=== PATIENT | male | born 1980 | race Caucasian/White ===

== ENCOUNTER → 2019-03-21 07:12 | Outpatient (BNVA) | payer OTHER, SELFPAY | PROVIDERS: Family Provider Nurse Practitioner Family; PCP Nurse Practitioner Family; Visit Provider Urology | DX: E29.1 Testicular hypofunction (principal); R79.89 Other specified abnormal findings of blood chemistry; R68.82 Decreased libido | CPT/HCPCS: 81001 ==

== ENCOUNTER 2019-03-22 20:00 | Outpatient (CLI) | payer OTHER, SELFPAY | END 2019-03-22 20:01 | disposition home or self-care (01) | LOC: SLEEP 03-23 10:00 | PROVIDERS: Family Provider Nurse Practitioner Family; PCP Nurse Practitioner Family; Visit Provider Nurse Practitioner Family | DX: G47.10 Hypersomnia, unspecified (principal); G47.33 Obstructive sleep apnea (adult) (pediatric); R09.02 Hypoxemia | CPT/HCPCS: 95810 ==

== ENCOUNTER → 2020-03-06 08:07 | Outpatient (BNVA) | payer OTHER, SELFPAY | PROVIDERS: Family Provider Nurse Practitioner Family; PCP Nurse Practitioner Family; Visit Provider Urology | DX: E29.1 Testicular hypofunction (principal); R68.82 Decreased libido | CPT/HCPCS: 84403 ==

== ENCOUNTER 2020-10-15 08:21 | Outpatient (CLI) | payer OTHER, SELFPAY ==
[2020-10-15 08:50] VITALS: BP 129/84; PULSE 75; RESP 16; TEMP 36.5; O2SAT 97; BMI 39.8
[2020-10-15 09:51] VITALS: BP 123/72; PULSE 66; RESP 16; TEMP 36.6; O2SAT 95
[2020-10-15 10:50] VITALS: BP 127/85; PULSE 66; RESP 16; TEMP 36.6; O2SAT 95
== END 2020-10-15 08:22 | disposition home or self-care (01) ==
LOC: OPS 08:26
PROVIDERS: PCP Nurse Practitioner Family; Visit Provider Nurse Practitioner Family
DX: U07.1 COVID-19 (principal)
CPT/HCPCS: 96365

== ENCOUNTER → 2021-03-05 08:57 | Outpatient (BNVA) | payer OTHER, SELFPAY | PROVIDERS: PCP Nurse Practitioner Family; Visit Provider Urology | DX: R68.82 Decreased libido (principal) | CPT/HCPCS: 84403 ==

== ENCOUNTER → 2021-09-17 10:18 | Outpatient (BNVA) | payer OTHER, SELFPAY | PROVIDERS: PCP Nurse Practitioner Family; Visit Provider Nurse Practitioner Family | DX: R79.89 Other specified abnormal findings of blood chemistry (principal); E29.1 Testicular hypofunction | CPT/HCPCS: 84403 ==

== ENCOUNTER → 2021-10-01 13:10 | Outpatient (BNVA) | payer OTHER, SELFPAY | PROVIDERS: PCP Family Medicine; Visit Provider Family Medicine | DX: E03.9 Hypothyroidism, unspecified (principal); I10 Essential (primary) hypertension; M79.10 Myalgia, unspecified site; E55.9 Vitamin D deficiency, unspecified; E78.5 Hyperlipidemia, unspecified | CPT/HCPCS: 80053; 80061; 82306; 84439; 84443; 84481; 85025 ==

== ENCOUNTER → 2021-11-25 08:57 | Outpatient (BNVA) | payer OTHER, SELFPAY | PROVIDERS: PCP Family Medicine; Visit Provider Urology | DX: R79.89 Other specified abnormal findings of blood chemistry (principal); E03.9 Hypothyroidism, unspecified | CPT/HCPCS: 84402 ==

== ENCOUNTER → 2021-12-03 10:11 | Outpatient (BNVA) | payer OTHER, SELFPAY | PROVIDERS: PCP Family Medicine; Visit Provider Urology | DX: E55.9 Vitamin D deficiency, unspecified (principal); M25.50 Pain in unspecified joint; I10 Essential (primary) hypertension; F32.A Depression, unspecified; F41.9 Anxiety disorder, unspecified; E29.1 Testicular hypofunction | CPT/HCPCS: 80053; 80061; 82306; 82607; 83735; 84403; 84439; 84443; 84550; 85025; 85651; 86038; 86140; 86200; 86431 ==

== ENCOUNTER → 2022-01-20 10:10 | Outpatient (BNVA) | payer OTHER, SELFPAY | PROVIDERS: PCP Family Medicine; Visit Provider Nurse Practitioner Family | DX: E03.9 Hypothyroidism, unspecified (principal); R79.89 Other specified abnormal findings of blood chemistry; E79.0 Hyperuricemia without signs of inflammatory arthritis and tophaceous disease | CPT/HCPCS: 80053; 84443; 84550; 86705; 86706; 86709; 86803; 87340 ==

== ENCOUNTER → 2022-03-01 08:40 | Outpatient (BNVA) | payer OTHER, SELFPAY | PROVIDERS: PCP Family Medicine; Visit Provider Urology | DX: R79.89 Other specified abnormal findings of blood chemistry (principal) | CPT/HCPCS: 84403 ==

== ENCOUNTER → 2022-03-04 16:12 | Outpatient (BNVA) | payer OTHER, SELFPAY | PROVIDERS: PCP Family Medicine; Visit Provider Nurse Practitioner Family | DX: M79.10 Myalgia, unspecified site (principal); R05.9 Cough, unspecified; R53.83 Other fatigue; J06.9 Acute upper respiratory infection, unspecified; R05.3 Chronic cough | CPT/HCPCS: 80053; 86664; 86665 ==

== ENCOUNTER → 2022-03-22 10:29 | Outpatient (BNVA) | payer OTHER, SELFPAY | PROVIDERS: PCP Family Medicine; Visit Provider Specialist | DX: R05.8 Other specified cough (principal) | CPT/HCPCS: 71046 ==

== ENCOUNTER 2022-04-29 08:51 | Outpatient (CLI) | payer OTHER, SELFPAY | END 2022-04-29 08:52 | disposition home or self-care (01) | PROVIDERS: PCP Family Medicine; Visit Provider Specialist | DX: R05.9 Cough, unspecified (principal) | CPT/HCPCS: 94010; 94726; 94729 ==

== ENCOUNTER 2022-04-30 11:18 | Outpatient (CLI) | payer OTHER, SELFPAY ==
--- NOTE | 2022-04-30 11:45 | USCV_ITS ---
Shilo Painter Age: 41 Gender: M : 1980 Exam Date: 04/30/2022 12:08 Ordering Phys: Bertha Louis NP Technologist: Catherine Marc [place] [facility] [place]: Covid symptoms BP: / HR: 85 Rhythm: Sinus Technical Quality: Adequate MEASUREMENTS (Male / Female) Normal Values 2D ECHO LV Diastolic Diameter PLAX 4.7 cm 4.2 - 5.9 / 3.9 - 5.3 cm LV Systolic Diameter PLAX 3.5 cm LV Chamber Size 2.8 cm IVS Diastolic Thickness 1.3 cm 0.6 - 1.0 / 0.6 - 0.9 cm IVS Systolic Thickness 1.4 cm LVPW Diastolic Thickness 1.4 cm 0.6 - 1.0 / 0.6 - 0.9 cm LVPW Systolic Thickness 1.4 cm RV Chamber Size 3.1 cm LVOT Diameter 2.1 cm LV Ejection Fraction 2D Teich 48.9 % LV Ejection Fraction MOD 2C 71.5 % LV Ejection Fraction 2C AL 72.5 % LA Diameter 3.2 cm LA Width 2.9 cm LA Height 4.1 cm RA Width 3.9 cm RA Height 3.5 cm Aorta at Sinotubular Diameter 3.1 cm IVC Diameter 2.2 cm M-MODE Aortic Annulus Diameter 3.3 cm LA Ao Ratio MM 1.1 MV E Point Septal Separation 0.3 cm DOPPLER AV Peak Velocity 116.0 cm/s LVOT Peak Velocity 112.0 cm/s AV Area Cont Eq vti 3.2 cm squared AV Area Cont Eq pk 3.2 cm squared MV Area PHT 3.9 cm squared Mitral E to A Ratio 1.2 MV E' Velocity 35.5 cm/s Mitral E to MV E' Ratio 12.6 Mitral E to LV E' Lateral Ratio 11.7 Mitral E to LV E' Septal Ratio 13.6 TR Peak Velocity 165.9 cm/s TR Peak Gradient 11.0 mmHg TR Mean Velocity 135.5 cm/s TR Mean Gradient 7.8 mmHg TR Velocity Time Integral 37.3 cm TV Peak E Velocity 75.0 cm/s Right Atrial Pressure 3.0 mmHg Pulmonary Artery Systolic Pressu 14.0 mmHg RV Acceleration Time 0.1 s RV Ejection Time 0.3 s RV AcT/ET 0.5 FINDINGS Left Ventricle Normal left ventricular size and systolic function, EF 60 %. No regional wall motion abnormalities. Right Ventricle The right ventricle is normal in size and function. Right Atrium The right atrium is normal in size. Left Atrium The left atrium is normal in size. Mitral Valve No gross abnormalities noted Aortic Valve No gross abnormalities noted Tricuspid Valve No gross abnormalities noted Pulmonic Valve Pulmonic valve not well visualized. Pericardium Normal pericardium without effusion. Aorta Normal ascending aorta dimension. IVC The inferior vena cava appears normal. CONCLUSIONS Normal left ventricular size and systolic function, EF 60 %. No regional wall motion abnormalities. Possibly normal chamber No significant valvular abnormalities were noted. There is no pericardial effusion. There are no intracardiac masses. No similar previous studies are available for comparison Dr Wei Donaldson MD FACC (Electronically Signed) Final Date: 04 May 2022 00:54 S
== END 2022-04-30 11:19 | disposition home or self-care (01) ==
PROVIDERS: PCP Family Medicine; Visit Provider Nurse Practitioner Family
DX: I51.7 Cardiomegaly (principal)
CPT/HCPCS: 93306

== ENCOUNTER 2022-06-24 08:13 | Outpatient (CLI) | payer OTHER, SELFPAY ==
--- NOTE | 2022-06-24 08:32 | ECG_ITS ---
[facility] Test Date: 2022-06-24 Pat Name: Shilo Painter Department: Room: Gender: Male Infusion Rn: : 1980 Requested By: Cooper Rizo Order Number: [id number] Sienna MD: Cooper Rizo M.D. Interpretive Statements NAME OF STUDY: EXERCISE SESTAMIBI STRESS TEST INDICATION: [Chest Pain; Shortness of Breath] EXERCISE DATA: The patient was exercised by Uziel protocol. Baseline heart rate was 74 beats per minute. Baseline blood pressure was 142/106 millimeters of mercury. Target heart rate was 152 beats per minute. Maximum heart rate achieved was 177 which was 116% of the target heart rate. Maximum blood pressure was 211/131 millimeters of mercury. Total exercise time was 7 minutes 21 seconds. Maximum METs achieved was 10.2. The reason for ending the test was completion of protocol. ELECTROCARDIOGRAM: BASELINE: Showed sinus rhythm, normal axis, no significant ST-T changes at the baseline noted. [] EXERCISE: At the peak exercise level, [] No significant ST-T changes suggestive of ischemia noted. [] RECOVERY: During the recovery period, heart rate dropped appropriately. No significant ST-T changes in the recovery suggestive of ischemia noted. [] CONCLUSION: 1. Exercise capacity is good 2. Heart rate response was appropriate 3. Blood pressure response was appropriate 4. Symptoms not suggestive of ischemia. 5. Electrocardiogram portion of the stress test was not suggestive of ischemia. 6. Nuclear scan will be documented separately. Electronically Signed On 07-10-2022 21:41:07 CDT by Cooper Rizo M.D. [id number]
--- NOTE | 2022-06-24 08:34 | NMCV_ITS ---
NM newton perf SPECT r/s* [id number] Shilo Painter Age: 41 Gender: M : 1980 Exam Date: 06/24/2022 08:34 Ordering Phys: Cooper Rizo M.D ([email or web address]) Technologist: MARTHA Agee Exam Location: [facility] Indications: CHEST PAIN, SHORTNESS OF BREATH STRESS TEST Please see separate stress test report in [facility] for full findings IMAGE PROTOCOL Rest/Stress 1 Exercise Day Radiopharmaceutical Dose (mCi) Administration Site Administered by Rest: Tc-99m 11.0 IV MARTHA Casanova Sestamicecy Stress:Tc-99m 33.0 IV MARTHA Casanova Sestamicecy Rest: 24-Jun-2022 60 Discovery 630 Stress: 24-Jun-2022 15 Discovery 630 Radiopharmaceutical was injected at 91 % maximum heart rate. Images obtained in supine and prone position. SPECT RESULTS Technical Quality: Excellent Raw Data Analysis: Normal Image Corrections: No attenuation or motion correction applied Summed Stress Score: 0 Summed Rest Score: 4 Summed Difference Score: 0 PERFUSION FINDINGS There is a reduced radiotracer uptake in the apical inferior and inferior carpenter that improves on stress images. This is consistent with attenuation artifact. No evidence of ischemia FUNCTIONAL RESULTS (calculated via Gated SPECT) Stress Image LV EF (%): 60 Stress EDV (mL):96 TID: 0.73 Stress ESV (mL):38 FUNCTIONAL FINDINGS: There is normal left ventricular systolic function. IMPRESSIONS 1. Attenuation artifact noted in the apical inferior and inferior carpenter. No evidence of ischemia 2. LV systolic function is normal Cooper Rizo MD (Electronically Signed) Final Date: 24 Jun 2022 17:10 S
[2022-06-24 08:35] VITALS: BMI 41.7
[2022-06-24 10:30] VITALS: BP 116/99; PULSE 116
== END 2022-06-24 08:14 | disposition home or self-care (01) ==
PROVIDERS: PCP Nurse Practitioner Family; Visit Provider Internal Medicine
DX: R07.9 Chest pain, unspecified (principal); R06.02 Shortness of breath
CPT/HCPCS: 36415; 78452; 93017; 96374; A9500

== ENCOUNTER → 2022-08-17 11:22 | Outpatient (BNVA) | payer OTHER, SELFPAY | PROVIDERS: PCP Nurse Practitioner Family; Visit Provider Nurse Practitioner Family | DX: J06.9 Acute upper respiratory infection, unspecified (principal); E78.5 Hyperlipidemia, unspecified; F41.9 Anxiety disorder, unspecified; F32.A Depression, unspecified; I10 Essential (primary) hypertension; E79.0 Hyperuricemia without signs of inflammatory arthritis and tophaceous disease; E29.1 Testicular hypofunction; E03.9 Hypothyroidism, unspecified; R53.83 Other fatigue; R79.89 Other specified abnormal findings of blood chemistry | CPT/HCPCS: 80053; 80061; 84402; 84403; 84443; 84550; 86664; 86665 ==

== ENCOUNTER 2022-09-22 09:38 | Outpatient (CLI) | payer OTHER, SELFPAY ==
--- NOTE | 2022-09-22 09:45 | USCV_ITS ---
Shilo Painter Age: 41 Gender: M : 1980 Exam Date: 09/22/2022 09:54 Ordering Phys: Bertha Louis NP Technologist: CASPER [place] [facility] [place]: Forearm swelling HISTORY: Rt Forearm Swelling PROCEDURES: Venous duplex imaging was performed in only the right upper extremity. The following venous structures were evaluated: internal jugular vein, subclavian vein, axillary vein, and brachial veins. In addition, the basilic vein and cephalic vein. In addition, the radial vein and ulnar vein. Serial compression, augmentation maneuvers, and spectral Doppler flow evaluation were performed. FINDINGS: Normal 2-D, color Doppler and phasicity noted in ther right upper extremity venous system extending from the right internal jugular vein through the main forearm. No thrombosis or occlusion noted. CONCLUSIONS No right upper extremity DVT. Dr. Bonnie Mares DO (Electronically Signed) Final Date: 22 September 2022 13:31 S
== END 2022-09-22 09:39 | disposition home or self-care (01) ==
PROVIDERS: PCP Nurse Practitioner Family; Visit Provider Nurse Practitioner Family
DX: M79.601 Pain in right arm (principal); M79.89 Other specified soft tissue disorders
CPT/HCPCS: 93971

== ENCOUNTER → 2023-02-10 10:14 | Outpatient (BNVA) | payer OTHER, SELFPAY | PROVIDERS: PCP Nurse Practitioner Family; Visit Provider Nurse Practitioner Family | DX: M79.672 Pain in left foot (principal); S99.922A Unspecified injury of left foot, initial encounter; X58.XXXA Exposure to other specified factors, initial encounter; E78.5 Hyperlipidemia, unspecified; E03.9 Hypothyroidism, unspecified; E55.9 Vitamin D deficiency, unspecified; I10 Essential (primary) hypertension; Z79.899 Other long term (current) drug therapy | CPT/HCPCS: 73630; 80053; 80061; 82306; 84443 ==

== ENCOUNTER → 2023-02-17 10:56 | Outpatient (BNVA) | payer OTHER, SELFPAY | PROVIDERS: PCP Nurse Practitioner Family; Visit Provider Podiatrist Foot & Ankle Surgery | DX: M67.471 Ganglion, right ankle and foot (principal) | CPT/HCPCS: 73630 ==

== ENCOUNTER → 2023-07-27 11:54 | Outpatient (BNVA) | payer OTHER, SELFPAY | PROVIDERS: PCP Nurse Practitioner Family; Visit Provider Nurse Practitioner Family | DX: I10 Essential (primary) hypertension (principal); F41.9 Anxiety disorder, unspecified; F32.A Depression, unspecified; M79.672 Pain in left foot; R79.89 Other specified abnormal findings of blood chemistry; E78.2 Mixed hyperlipidemia; E03.9 Hypothyroidism, unspecified; M19.90 Unspecified osteoarthritis, unspecified site; Z79.899 Other long term (current) drug therapy | CPT/HCPCS: 80053; 80061; 84402; 84403; 84443; 85025 ==

== ENCOUNTER 2024-03-20 13:55 | Outpatient (CLI) | payer OTHER, SELFPAY ==
--- NOTE | 2024-03-20 14:10 | XR_ITS ---
WS: [id number] Exam: XR lumbar spine f/e only [id number] Date/Time of Exam: 03/20/2024 2:16 PM Reason For Exam: BACK PAIN Comparison 06/18/2013. No flexion or extension instability. Disc spaces are preserved. Posterior elements appear to be intac t. Mild spondylosis of the L4 and L5. XR/XR lumbar spine f/e only [id number] IMPRESSION: 1. No flexion or extension instability.
== END 2024-03-20 13:56 | disposition home or self-care (01) ==
LOC: RAD 13:59
PROVIDERS: PCP Nurse Practitioner Family; Visit Provider Nurse Practitioner Family
DX: M54.16 Radiculopathy, lumbar region (principal); M47.896 Other spondylosis, lumbar region
CPT/HCPCS: 72120

== ENCOUNTER 2024-03-21 12:09 | Outpatient (CLI) | payer OTHER, SELFPAY ==
--- NOTE | 2024-03-21 12:18 | XR_ITS ---
WS: [email or web address] Exam: XR hip LT 2-3V wo/w pel* [id number] Date/Time of Exam: 03/21/2024 12:19 PM Reason For Exam: HIP PAIN, LEFT No fracture noted. The joint spaces preserved. Normal soft tissues. XR/XR hip LT 2-3V wo/w pel* [id number] IMPRESSION: 1. Normal LEFT hip.
== END 2024-03-21 12:10 | disposition home or self-care (01) ==
LOC: RAD 12:11
PROVIDERS: PCP Nurse Practitioner Family; Visit Provider Nurse Practitioner Family
DX: M25.552 Pain in left hip (principal)
CPT/HCPCS: 73502

== ENCOUNTER 2024-03-21 12:44 | Emergency (ER) | payer OTHER, SELFPAY ==
[2024-03-21 12:51] VITALS: BP 149/108; PULSE 122; RESP 16; TEMP 36.6; O2SAT 93; BMI 43.6
--- NOTE | 2024-03-21 13:04 | W.ED.BACK ---
HPI - Back Pain/Injury General: Chief Complaint: Back Pain/Injury Stated Complaint: hip/low back pain Time Seen by Provider: 03/21/24 12:54 Source: patient Mode of arrival: ambulatory Limitations: no limitations History of Present Illness: Patient is a 43-year-old male who presents the emergency department complaining of left lower extremity pain intermittently greater than a month. Patient states initial injury was a fall that he had at work, injuring his left knee. He states that he had an MRI performed and this showed a medial meniscus tear. He notes steady worsening of his left hip as well as radiation into his left back and now is radiating across his right back. States he has been ambulatory, the pain will intermittently get worse but overall presents today due to unbearable pain. He states that he took a couple of [place] pills, overall has not gotten any relief from medication. Denies history of fevers, cancer history, numbness or weakness, bowel or bladder incontinence, or any other concerning symptoms. No history of chronic steroid use or IV drug use. Tachycardic on arrival, secondary to pain most likely rest of his vitals unremarkable. Denies any recent trauma other than the initial injury. Patient notes that he recently had normal lab work done. MD elicited complaint: back pain Pertinent past history: recent trauma (Greater than 1 month ago) Onset (ago): month(s) Timing: intermittent Severity: severe Location: left lower back Radiation: left leg below the knee Exacerbating factors: movement, sitting upright and walking Relieving factors: none Context: fall Associated symptoms: Deny abdominal pain, difficulty walking, fecal incontinence, fever(s) or syncope Related Data Home Medications Medication Instructions Recorded Confirmed cholecalciferol (vitamin D3) 125 250 mcg PO DAILY 10/01/21 03/21/24 mcg (5,000 unit) capsule allopurinol 200 mg tablet 200 mg PO DAILY 03/21/24 03/21/24 aspirin 81 mg tablet,delayed 81 mg PO DAILY 03/21/24 03/21/24 release cyclobenzaprine 10 mg tablet 10 mg PO Q8H PRN Muscle Spasm 03/21/24 03/21/24 levothyroxine 150 mcg tablet 150 mcg PO DAILY 03/21/24 03/21/24 loratadine 10 mg tablet 10 mg PO DAILY 03/21/24 03/21/24 magnesium 250 mg tablet 250 mg PO DAILY 03/21/24 03/21/24 valsartan 80 1 tab PO DAILY 03/21/24 03/21/24 mg-hydrochlorothiazide 12.5 mg tablet zinc sulfate 50 mg zinc (220 mg) 50 mg PO DAILY 03/21/24 03/21/24 tablet Previous Rx's Medication Instructions Recorded syringe with needle 3 mL 22 gauge #10 ea 11/25/20 x 1 (Syringe) testosterone cypionate 200 mg/mL 200 mg IM .weekly #10 mL 03/04/22 intramuscular oil citalopram 20 mg tablet 20 mg PO DAILY #90 tabs 07/27/23 ketorolac 10 mg tablet 10 mg PO Q8H PRN pain #15 tabs 03/21/24 prednisone 20 mg tablet 60 mg (3 x 20 mg) PO ONCE 5 days 03/21/24 #15 tabs Allergies Allergy/AdvReac Type Severity Reaction Status Date / Time No Known Allergies Allergy Verified 02/17/23 10:52 Review of Systems General: Reports: 10 or more systems reviewed and unremarkable except in HPI and below Const: Reports: other (denies trauma); Denies: fever(s), change in weight or night sweats Card: Denies: chest pain, lightheadedness or syncope Resp: Denies: dyspnea GI: Denies: abdominal pain or fecal incontinence : Denies: urinary incontinence Musc: Reports: back pain, extremity pain (Left lower) and limited range of motion; Denies: neck pain Skin/Breast: Denies: rash or skin pain Neuro: Denies: headache(s), numbness in extremities, weakness in extremities, sensory changes, lack of coordination, difficulty walking, frequent falls or involuntary movements PFSH ED PFSH: Medical History Anxiety and depression Myalgia Hypersomnia Depression Hypogonadism in male Essential hypertension Decreased libido Surgical History History of surgery on arm DISTAL BICEP TENDON REPAIR S/P tonsillectomy and adenoidectomy S/P knee surgery Family History Unknown Adopted Social History Smoking and tobacco/nicotine status: never used tobacco/nicotine Alcohol intake: never Substance/Drug Use: never Adopted: Yes Marital status: Current occupational status: employed Physical Exam Const: COMMON NORMALS: patient oriented x3, no limitations, healthy appearing and alert GENERAL APPEARANCE: cooperative OTHER: Appears uncomfortable Resp: COMMON NORMALS: normal respiratory effort, No retractions, No use of accessory muscles and clear to auscultation bilaterally AUSCULTATION: clear to auscultation bilaterally Cardio: COMMON NORMALS: regular rate, regular rhythm, S1 normal heart sound present and S2 normal heart sound present RATE: regular rate RHYTHM: regular rhythm HEART SOUNDS: S1 normal heart sound present and S2 normal heart sound present Back/Pelvis: OTHER: Normal visual examination. No spinous process tenderness. Minimal tenderness to palpation to the left paralumbar muscles. Discomfort with range of motion at the lower back, positive straight leg raise testing on both the left and right. Extremity: COMMON NORMALS: normal to inspection, full ROM and no pedal edema NARRATIVE EXTREMITY EXAM: Postoperative scar to left knee, no significant reproducible tenderness to palpation to the left knee. No significant reproducible tenderness to palpation of the left hip. No obvious deformities at this time. Neuro: COMMON NORMALS: patient oriented x3, moves all extremities, no focal motor deficits, no sensory deficits noted, deep tendon reflexes 2+ bilaterally and gait normal SENSORIUM/ORIENTATION: Yes alert OTHER: L3, L4, L5, and S1 nerve sensations intact. Normal knee jerk and ankle jerk reflexes. Skin: COMMON NORMALS: no rashes or lesions noted GENERAL SKIN EXAM: no rashes or lesions noted Course Vital Signs: Vital signs: Vital Signs Temperature 97.9 F 03/21/24 12:51 Pulse Rate 100 03/21/24 13:32 Respiratory Rate 18 03/21/24 13:32 Blood Pressure 139/81 03/21/24 13:32 Pulse Oximetry 94 03/21/24 13:32 Oxygen Delivery Me thod Room Air 03/21/24 12:51 MDM - Back Pain/Injury Medical Decision Making Patient had a fall a month ago, has been dealing with intermittent left lower extremity and back pain since. Has already had numerous workups, including have an MRI of his left knee that showed medial meniscus tear. He had x-ray of his left hip this morning that I reviewed and was negative. He has not had any imaging of his back other than a lumbar x-ray, which was unremarkable at time of his initial injury. He notes improvement of pain here in the ED after receiving medications, I do suspect a lumbar radiculopathy however no acute/emergent pathology such as cauda equina due to his unremarkable physical exam. Thus feel he is safe to follow-up outpatient, he feels comfortable with this plan and general return precautions were given. Discussed with him option for CT scan and he feels comfortable treating with medicine at home and returning with any worsening. No radiology studies performed this visit Discharge Plan Discharge Patient Disposition: Home Clinical Impression: Bilateral lumbar radiculopathy Condition: Stable Prescriptions: New prednisone 20 mg tablet 60 mg PO ONCE 5 Days Qty: 15 0RF ketorolac 10 mg tablet 10 mg PO Q8H PRN (Reason: pain) Qty: 15 0RF Discontinued diclofenac sodium 75 mg tablet,delayed release (DR/EC) 75 mg PO BID No Action testosterone cypionate 200 mg/mL oil 200 mg IM .weekly Qty: 10 5RF cholecalciferol (vitamin D3) 125 mcg (5,000 unit) capsule 250 mcg PO DAILY citalopram 20 mg tablet 20 mg PO DAILY Qty: 90 1RF (DME) Syringe 3cc/22Gx1 3 mL 22 gauge x 1 syringe miscellaneous Qty: 10 6RF Rx Instructions: for testosterone injection cyclobenzaprine 10 mg tablet 10 mg PO Q8H PRN (Reason: Muscle Spasm) aspirin [Aspir-81] 81 mg Tablet,Delayed Release (Dr/Ec) 81 mg PO DAILY zinc sulfate 50 mg zinc (220 mg) Tablet 50 mg PO DAILY magnesium 250 mg Tablet 250 mg PO DAILY loratadine 10 mg Tablet 10 mg PO DAILY valsartan-hydrochlorothiazide 80-12.5 mg tablet 1 tab PO DAILY levothyroxine 150 mcg tablet 150 mcg PO DAILY allopurinol 200 mg tablet 200 mg PO DAILY Discharge Orders: Discharge ED (Routine); Ordered 03/21/24 Ordered By: Darrius Noel Referrals: Margie Li FNP [Primary Care Provider] - Patient Instructions: Lumbar Radiculopathy (ED) Activity Restrictions/Additional Instructions: Continue taking muscle relaxers you already have. Take prednisone and Toradol as prescribed. Follow-up with Ortho/spine, await call to schedule appointment. Return with any loss of bowel or bladder function, severe numbness/weakness/paralysis of extremities, or other concerns that you have. Coding Level of Care Code ED Lidding Machine Operator for Christos Aburto
[2024-03-21] MEDS: dexamethasone 10 mg/mL INJ IM (13:09)
[2024-03-21] MEDS: ketorolac 60 mg/2 mL INJ IM (13:09)
[2024-03-21] MEDS: orphenadrine 30 mg/mL Inj 2 mL 60 MG IM (13:10)
[2024-03-21 13:32] VITALS: BP 139/81; PULSE 100; RESP 18; O2SAT 94
[2024-03-21 13:53] VITALS: BP 139/81; PULSE 109; RESP 16; O2SAT 93
--- NOTE | 2024-03-23 00:46 | DCPLANNER ---
Message sent to Ortho
== END 2024-03-21 14:03 | disposition home or self-care (01) ==
PROVIDERS: Emergency Provider Physician Assistant; PCP Nurse Practitioner Family
DX: M54.16 Radiculopathy, lumbar region (principal); I10 Essential (primary) hypertension
CPT/HCPCS: 96372; 99284; J1100; J1885; J2360

== ENCOUNTER → 2024-04-05 08:26 | Outpatient (BNVA) | payer OTHER, SELFPAY | PROVIDERS: PCP Nurse Practitioner Family; Visit Provider Orthopaedic Surgery | DX: M54.50 Low back pain, unspecified (principal); M79.604 Pain in right leg; M79.605 Pain in left leg | CPT/HCPCS: 72110 ==

== ENCOUNTER 2024-04-18 18:49 | Observation (INO) | payer OTHER, SELFPAY ==
[2024-04-18 19:09] VITALS: BP 141/71; PULSE 115; RESP 17; TEMP 37.1; O2SAT 95; BMI 43.6
[2024-04-18 20:41] LABS: Basophils # 0.1 10^3/uL (0.0-0.1); Basophils % 0.3 %; Eosinophils # 0.1 10^3/uL (0.0-0.8); Eosinophils % 0.7 %; Hematocrit 54.7 % (37-53); Lymphocytes # 2.6 10^3/uL (0.8-4.8); Lymphocytes % 13.2 %; Mean Corpuscular HGB Conc 33.5 g/dL (30-55); Mean Corpuscular Hemoglobin 34.3 pg (27-33); Mean Corpuscular Volume 102.4 fl (82-101); Mean Platelet Volume 9.1 fL (7.4-10.4); Monocytes # 1.1 10^3/uL (0.2-0.9); Monocytes % 5.6 %; Neutrophils # 15.68 10^3/uL (1.8-7.7); Neutrophils % 78.3 %; Nucleated Red Blood Cells % 0 %; Platelet Count 236 10^3/cmm (157-399); Red Blood Count 5.34 10^6/uL (3.85-5.65); Red Cell Distribution Width 13.2 % (12.1-15.1); White Blood Count 20.03 10^3/uL (3.29-11.43)
[2024-04-18 20:58] LABS: Alanine Aminotransferase 104 U/L (0-41); Albumin Level 4.4 g/dL (3.5-5.2); Alkaline Phosphatase 88 U/L (40-130); Anion Gap 17.4 (5-19); Aspartate Amino Transferase 37 U/L (0-40); Blood Urea Nitrogen 21 mg/dL (6-20); Calcium 9.9 mg/dL (8.5-10.5); Carbon Dioxide 30 mmol/L (22-29); Chloride 96 mmol/L (98-107); Creatinine Clr Calc Pharmacy 135.9573; Globulin 3.4 g/dL (1.3-4.6); Glomerular Filtration Rate 73.1 mL/min (90-130); Glucose 113 mg/dL (65-115); Osmolality Calculated 292 mOsm/kg (285-295); Potassium 4.4 mmol/L (3.5-5.1); Sodium 139 mmol/L (136-145); Total Bilirubin 0.7 mg/dL (0.15-1.2); Total Protein 7.8 g/dL (6.6-8.7)
--- NOTE | 2024-04-18 21:05 | CTR_ITS ---
PROCEDURE INFORMATION: Exam: CT Abdomen And Pelvis With Contrast Exam date and time: 04/18/2024 9:45 PM Age: 43 years old Clinical indication: Abdominal pain; Epigastric TECHNIQUE: Imaging protocol: Computed tomography of the abdomen and pelvis with contrast. Radiation optimization: All CT scans at this facility use at least one of these dose optimization techniques: automated exposure control; mA and/or kV adjustment per patient size (includes targeted exams where dose is matched to clinical indication); or iterative reconstruction. Contrast material: OMNIPAQUE 350; Contrast volume: 100 ml; Contrast route: INTRAVENOUS (IV); COMPARISON: CR XR hip LT 2-3V wo/w pel* [id number] 03/21/2024 12:23 PM RADIATION DOSE METRICS: Total DLP (mGy-cm): 1381.73 FINDINGS: Liver: Hepatic steatosis. Gallbladder and biliary ducts: Cholecystectomy. Pancreas: Minimal edema about the pancreatic head and uncinate process, please correlate for pancreatitis. Spleen: Normal. No splenomegaly. Adrenal glands: Normal. No mass. Kidneys and ureters: Normal. No hydronephrosis. Stomach and bowel: Unremarkable. No obstruction. No mucosal thickening. Appendix: No evidence of appendicitis. Intraperitoneal space: Unremarkable. No free air. No significant fluid collection. Vasculature: Unremarkable. No abdominal aortic aneurysm. Lymph nodes: Unremarkable. No enlarged lymph nodes. Urinary bladder: Unremarkable as visualized. Reproductive: Unremarkable as visualized. Bones/joints: Unremarkable. No acute fracture. Soft tissues: Small bilateral inguinal hernias containing omentum without bowel. CT/CT abdomen pelvis w con* [id number] IMPRESSION: 1. Minimal edema about the pancreatic head and uncinate process, please correlate for pancreatitis. 2. Small bilateral inguinal hernias containing omentum without bowel. 3. Hepatic steatosis. 4. Cholecystectomy.
[2024-04-18 21:06] LABS: Lipase 427 U/L (13-60)
--- NOTE | 2024-04-18 21:11 | W.ED.ABDPA2 ---
HPI - Abdominal Pain General: Chief Complaint: ER Hold Stated Complaint: severe mid right back pain into front Time Seen by Provider: 04/18/24 21:00 History of Present Illness: 43-year-old man with a history of obesity, cholecystectomy, obstructive sleep apnea on a CPAP at night and hypertension who presents emergency room with abdominal and back pain with nausea. This been going on for couple of days now. Has had episodes of being much worse. Said today he had some vomiting associated with it. No fevers. He does not drink alcohol. Cholecystectomy in the past. He has not noticed the relation to eating but he has had a decreased appetite and has not really eaten anything at all today. He says he had some relief he thinks with some diclofenac he took today. Related Data Home Medications ?Medication ?Instructions ?Recorded ?Confirmed cholecalciferol (vitamin D3) 125 250 mcg PO DAILY 10/01/21 04/05/24 mcg (5,000 unit) capsule allopurinol 200 mg tablet 200 mg PO DAILY 03/21/24 04/05/24 aspirin 81 mg tablet,delayed 81 mg PO DAILY 03/21/24 04/05/24 release cyclobenzaprine 10 mg tablet 10 mg PO Q8H PRN Muscle Spasm 03/21/24 04/05/24 levothyroxine 150 mcg tablet 150 mcg PO DAILY 03/21/24 04/05/24 loratadine 10 mg tablet 10 mg PO DAILY 03/21/24 04/05/24 magnesium 250 mg tablet 250 mg PO DAILY 03/21/24 04/05/24 valsartan 80 1 tab PO DAILY 03/21/24 04/05/24 mg-hydrochlorothiazide 12.5 mg tablet zinc sulfate 50 mg zinc (220 mg) 50 mg PO DAILY 03/21/24 04/05/24 tablet Previous Rx's ?Medication ?Instructions ?Recorded syringe with needle 3 mL 22 gauge #10 ea 11/25/20 x 1 (Syringe) testosterone cypionate 200 mg/mL 200 mg IM .weekly #10 mL 03/04/22 intramuscular oil citalopram 20 mg tablet 20 mg PO DAILY #90 tabs 07/27/23 ketorolac 10 mg tablet 10 mg PO Q8H PRN pain #15 tabs 03/21/24 prednisone 20 mg tablet 20 mg PO DAILY 7 days #15 tabs 04/05/24 Allergies Allergy/AdvReac Type Severity Reaction Status Date / Time No Known Allergies Allergy Verified 04/18/24 19:13 Review of Systems Narrative: Constitutional symptoms: Negative except as documented in HPI. Skin symptoms: Negative except as documented in HPI. Eye symptoms: Negative except as documented in HPI. ENMT symptoms: Negative except as documented in HPI. Respiratory symptoms: Negative except as documented in HPI. Cardiovascular symptoms: Negative except as documented in HPI. Gastrointestinal symptoms: Negative except as documented in HPI. Genitourinary symptoms: Negative except as documented in HPI. Musculoskeletal symptoms: Negative except as documented in HPI. Neurologic symptoms: Negative except as documented in HPI. Psychiatric symptoms: Negative except as documented in HPI. Endocrine symptoms: Negative except as documented in HPI. PFSH ED PFSH: Medical History Anxiety and depression Myalgia Hypersomnia Depression Hypogonadism in male Essential hypertension Decreased libido Surgical History History of surgery on arm DISTAL BICEP TENDON REPAIR S/P tonsillectomy and adenoidectomy S/P knee surgery Family History Unknown Adopted Social History Smoking and tobacco/nicotine status: never used tobacco/nicotine Alcohol intake: never Substance/Drug Use: never Adopted: Yes Marital status: Current occupational status: employed Physical Exam Narrative: EXAM NARRATIVE: General: Alert, no acute distress. Skin: Warm, dry. Head: Normocephalic, atraumatic. Neck: Supple, trachea midline. Eye: Extraocular movements are intact. Ears, nose, mouth and throat: mucosa moist. Cardiovascular: Regular, Normal peripheral perfusion. Respiratory: Lungs are clear to auscultation, respirations are non-labored, breath sounds are equal, Symmetrical chest wall expansion. Gastrointestinal: Soft, epigastric tenderness, Non distended Musculoskeletal: Normal ROM, no deformity. Neurological: Alert and oriented, No focal neurological deficit observed. Psychiatric: Cooperative, appropriate mood & affect. Course Vital Signs: Vital signs: Vital Signs Temperature 98.7 F 04/18/24 19:09 Pulse Rate 94 04/18/24 22:30 Respiratory Rate 18 04/18/24 22:00 Blood Pressure 125/90 04/18/24 22:30 Pulse Oximetry 96 04/18/24 22:30 Oxygen Delivery Me thod Room Air 04/18/24 22:30 MDM - Abdominal Pain Medical Decision Making Medical decision making: Differential diagnosis including but not limited to and based on the above HPI, review of systems and physical exam: In this patient with epigastric pain differential would include cholelithiasis or cholecystitis. Hepatitis. Diverticulitis. Constipation. UTI. colitis. small bowel obstruction. crohn's flare. pancreatitis. gastritis. peptic ulcer. also concern for acute cardiac event. Orders placed to evaluate differential diagnosis based on the above differential, HPI and physical exam Lab Review: Laboratory results were reviewed and interpreted by myself the emergency room physician. Leukocytosis with a white count 20,000. This may be related to steroid injections. Hemoglobin is 18. BUN/creatinine are 21 and 1.1. AST and ALT are 37 and 104. Lipase is elevated at 430. CT of the abdomen pelvis with contrast: There is evidence of pancreatitis. This was reviewed and interpreted by myself the emergency room physician. I also reviewed the radiology report. I reviewed the patient's medical record. Reexamination: Patient remained stable. No increased work of breathing. No altered mental status. No focal motor deficits. Discussed findings. Discussed need for admission with n.p.o. and fluids. Consultation: I spoke Dr. Rutledge who is on-call for the hospital service who agrees to admission. Assessment and plan: Pancreatitis -I discussed the patient with the hospitalist on-call who is admitting the patient. - Discussed findings and plan with patient. Answered any questions. - All laboratory values were reviewed and interpreted personally by myself, the ER physician - All imaging was reviewed and interpreted personally by myself, the ER physician. - Evaluation and treatment of this problem were appropriate in the emergency setting Lab Data 04/18/24 20:38 04/18/24 20:38 Labs/Radiology: Radiology Impressions Abdomen/Pelvis CT 04/18/24 21:05 IMPRESSION: 1. Minimal edema about the pancreatic head and uncinate process, please correlate for pancreatitis. 2. Small bilateral inguinal hernias containing omentum without bowel. 3. Hepatic steatosis. 4. Cholecystectomy. Laboratory Results WBC 20.03 10^3/uL (3.29-11.43) H 04/18/24 20:38 RBC 5.34 10^6/uL (3.85-5.65) 04/18/24 20:38 Hgb 18.30 g/dL (11.27-16.99) H 04/18/24 20:38 Hct 54.7 % (37-53) H 04/18/24 20:38 MCV 102.4 fl (82-101) H 04/18/24 20:38 MCH 34.3 pg (27-33) H 04/18/24 20:38 MCHC 33.5 g/dL (30-55) 04/18/24 20:38 RDW 13.2 % (12.1-15.1) 04/18/24 20:38 Plt Count 236 10^3/cmm (157-399) 04/18/24 20:38 MPV 9.1 fL (7.4-10.4) 04/18/24 20:38 Neut % (Auto) 78.3 % 04/18/24 20:38 Lymph % (Auto) 13.2 % 04/18/24 20:38 [place] % (Auto) 5.6 % 04/18/24 20:38 Eos % (Auto) 0.7 % 04/18/24 20:38 Baso % (Auto) 0.3 % 04/18/24 20:38 Neut # (Auto) 15.68 10^3/uL (1.8-7.7) H 04/18/24 20:38 Lymph # (Auto) 2.6 10^3/uL (0.8-4.8) 04/18/24 20:38 [place] # (Auto) 1.1 10^3/uL (0.2-0.9) H 04/18/24 20:38 Eos # (Auto) 0.1 10^3/uL (0.0-0.8) 04/18/24 20:38 Baso # (Auto) 0.1 10^3/uL (0.0-0.1) 04/18/24 20:38 Nucleated RBC % (auto) 0 % 04/18/24 20:38 Nucleated RBCs # 0.0 /100WBC 04/18/24 20:38 Sodium 139 mmol/L (136-145) 04/18/24 20:38 Potassium 4.4 mmol/L (3.5-5.1) 04/18/24 20:38 Chloride 96 mmol/L (98-107) L 04/18/24 20:38 Carbon Dioxide 30 mmol/L (22-29) H 04/18/24 20:38 Anion Gap 17.4 (5-19) 04/18/24 20:38 BUN 21 mg/dL (6-20) H 04/18/24 20:38 Creatinine 1.1 mg/dL (0.7-1.2) 04/18/24 20:38 GFR Calculation 73.1 mL/min (90-130) L 04/18/24 20:38 Glucose 113 mg/dL (65-115) 04/18/24 20:38 Calculated Osmolality 292 mOsm/kg (285-295) 04/18/24 20:38 Calcium 9.9 mg/dL (8.5-10.5) 04/18/24 20:38 Total Bilirubin 0.7 mg/dL (0.15-1.2) 04/18/24 20:38 AST 37 U/L (0-40) 04/18/24 20:38 ALT 104 U/L (0-41) H 04/18/24 20:38 Alkaline Phosphatase 88 U/L (40-130) 04/18/24 20:38 Total Protein 7.8 g/dL (6.6-8.7) 04/18/24 20:38 Albumin 4.4 g/dL (3.5-5.2) 04/18/24 20:38 Globulin 3.4 g/dL (1.3-4.6) 04/18/24 20:38 Triglycerides 118 mg/dL (0-150) 04/18/24 20:35 Cholesterol 246 mg/dL (0-200) H 04/18/24 20:35 LDL Cholesterol, Calc 161 mg/dL (50-129) H 04/18/24 20:35 HDL Cholesterol 61 mg/dL (60-100) 04/18/24 20:35 LDL/HDL Ratio 2.64 RATIO (0.00-3.22) 04/18/24 20:35 Cholesterol/HDL Ratio 4.03 mg/dL (1.0-5.00) 04/18/24 20:35 Lipase 427 U/L (13-60) H 04/18/24 20:38 All radiology interpretation(s) finalized by discharge Discharge Plan Discharge Patient Disposition: Admitted As Inpatient Admit Provider: Clay Rutledge Clinical Impression: Pancreatitis Condition: Stable Coding Level of Care Code ED Air Bag Curer for Christos Aburto
[2024-04-18 21:32] VITALS: BP 129/92; PULSE 107; O2SAT 95
[2024-04-18] MEDS: iohexol 350 mg/mL 500 mL Btl (per mL) IV (21:47)
[2024-04-18] MEDS: sodium chloride 0.9% 1,000 ML 999 ML IV (21:58)
[2024-04-18] MEDS: ondansetron 2 mg/ML SDV 2 mL 4 MG IVP (21:59)
[2024-04-18 22:00] VITALS: RESP 18; O2SAT 96
[2024-04-18] MEDS: morphine 4 mg/mL SDV 1 mL IVP (22:00)
[2024-04-18 22:30] VITALS: BP 125/90; PULSE 94; O2SAT 96
--- NOTE | 2024-04-18 22:36 | PM.HP ---
Providers/Chief Complaint Primary Care Provider: Margie Li Chief Complaint: severe mid right back pain into front History of Present Illness Shilo Painter is a 43 year old male present to the hospital with worsening abdominal pain with bloating. Patient is stating that he has history of cholecystectomy, he is not sure if gallstones are present. He does not drink alcohol on daily basis, does not smoke. Works at [employer]. Endorsing eating a lot of junk food in a day. In the ER workup consistent with leukocytosis, pancreatitis, triglyceride not high, Patient is stating that his symptoms started on Tuesday when he noticed some bloating, stating that he sleeps on his stomach that he could not do so on Tuesday and Tuesday, today his symptoms got worse he decided come to the hospital further evaluation he has not been experience any fever,or vomiting. He has not eaten in the last 2 days, secondary to bloating Review of Systems Const: Denies: chills Eyes: Denies: change in vision ENMT: Denies: throat pain Card: Denies: chest pain Resp: Denies: dyspnea GI: Reports: nausea : Denies: flank pain Medications/Allergies Home Medications ?Medication ?Instructions ?Recorded ?Confirmed ?Last Taken ?Type syringe with needle 3 mL 22 gauge #10 ea 11/25/20 04/05/24 Unknown Rx x 1 (Syringe) cholecalciferol (vitamin D3) 125 250 mcg PO DAILY 10/01/21 04/05/24 03/20/24 History mcg (5,000 unit) capsule testosterone cypionate 200 mg/mL 200 mg IM .weekly #10 mL 03/04/22 04/05/24 Unknown Rx intramuscular oil citalopram 20 mg tablet 20 mg PO DAILY #90 tabs 07/27/23 04/05/24 03/20/24 Rx allopurinol 200 mg tablet 200 mg PO DAILY 03/21/24 04/05/24 03/20/24 History aspirin 81 mg tablet,delayed 81 mg PO DAILY 03/21/24 04/05/24 03/20/24 History release cyclobenzaprine 10 mg tablet 10 mg PO Q8H PRN Muscle Spasm 03/21/24 04/05/24 03/20/24 History ketorolac 10 mg tablet 10 mg PO Q8H PRN pain #15 tabs 03/21/24 04/05/24 Unknown Rx levothyroxine 150 mcg tablet 150 mcg PO DAILY 03/21/24 04/05/24 03/20/24 History loratadine 10 mg tablet 10 mg PO DAILY 03/21/24 04/05/24 03/20/24 History magnesium 250 mg tablet 250 mg PO DAILY 03/21/24 04/05/24 03/20/24 History valsartan 80 1 tab PO DAILY 03/21/24 04/05/24 03/20/24 History mg-hydrochlorothiazide 12.5 mg tablet zinc sulfate 50 mg zinc (220 mg) 50 mg PO DAILY 03/21/24 04/05/24 03/20/24 History tablet prednisone 20 mg tablet 20 mg PO DAILY 7 days #15 tabs 04/05/24 04/05/24 Unknown Rx Allergies Allergy/AdvReac Type Severity Reaction Status Date / Time No Known Allergies Allergy Verified 04/18/24 19:13 PFSH Acute PFSH: Medical History Anxiety and depression Myalgia Hypersomnia Depression Hypogonadism in male Essential hypertension Decreased libido Surgical History History of surgery on arm DISTAL BICEP TENDON REPAIR S/P tonsillectomy and adenoidectomy S/P knee surgery Family History Unknown Adopted Social History Smoking and tobacco/nicotine status: never used tobacco/nicotine Alcohol intake: never Substance/Drug Use: never Adopted: Yes Marital status: Current occupational status: employed Vitals/I&O/Wt Last Vital Signs Temp 98.7 F 04/18/24 19:09 Pulse 94 04/18/24 22:30 Resp 18 04/18/24 22:00 BP 125/90 04/18/24 22:30 Pulse Ox 96 04/18/24 22:30 O2 Del Method Room Air 04/18/24 22:30 Weight last 48 hrs Weight 154.221 kg Physical Exam Narrative: Morbidly obese Epigastric tenderness GCS 15 Euvolemic Nonfocal neuroexam No active pain GCS 15 S1, S2 Currently room air No active emesis Data 04/18/24 20:38 04/18/24 20:38 A&P Assessment and plan (1) Pancreatitis: (2) Obesity: (3) Adult hypothyroidism: (4) Essential hypertension: Plan Acute pancreatitis History of cholecystectomy Triglycerides within normal range Dyslipidemia noted I will discontinue valsartan hydrochlorothiazide combination For hypertension we will add metoprolol and amlodipine Opioid Dilaudid Start IV fluids Will request MRCP to rule out choledocholithiasis I do not see any abnormality of liver enzymes or high bilirubin, alkaline phosphatase normal Patient does not endorse drinking alcohol, does not smoke on daily basis, will request drug screen Full code N.p.o. for now advance diet in the morning Patient is stating that he has MRI of back as well for Worker's Comp., asking if this could be done on the same visit: DVT prophylaxis Lovenox Check hemoglobin A1c PDMP PDMP Reviewed: Not Reviewed Attestations Medical Necessity Statement*: Anticipating less than 2 midnights for management of pancreatitis Diagnoses Pancreatitis K85.90 Obesity E66.9 Adult hypothyroidism E03.9 Essential hypertension I10
[2024-04-18 22:59] LABS: Chol HDL Ratio 4.03 mg/dL (1.0-5.00); Cholesterol 246 mg/dL (0-200); HDL Cholesterol 61 mg/dL (60-100); LDL Cholesterol Calculated 161 mg/dL (50-129); LDL HDL Ratio 2.64 RATIO (0.00-3.22); Triglycerides 118 mg/dL (0-150)
[2024-04-18] MEDS: enoxaparin 40 mg/0.4 mL Syringe SUBCUT (23:19)
[2024-04-18 23:38] LABS: Bilirubin Urine Negative (Negative); Blood Urine Negative (Negative); Glucose Urine UA Negative (Normal); Ketones Urine Negative (Negative); Leukocyte Esterase Urine Negative (Negative); Nitrate Urine Negative (Negative); Protein Urine Negative (Negative); Urine Appearance Clear (CLEAR); Urine Color Yellow (Yellow); Urobilinogen Urine 0.2 mg/dL (Negative)
[2024-04-18 23:45] LABS: Specific Gravity, Urine 1.056 (1.005-1.030)
[2024-04-18] MEDS: dextrose 5%-lactated ringers 1,000 ML 100 ML IV (23:52)
[2024-04-18 23:55] LABS: UA Manual Slide Review YES; UA Slide Review UA Slide Review Perf
[2024-04-19 00:31] LABS: Estmated Average Glucose 128; Hemoglobin A1C 6.1 % (4.0-6.0)
[2024-04-19 02:47] VITALS: BP 138/90; PULSE 88; O2SAT 95
[2024-04-19 02:59] LABS: Basophils # 0.1 10^3/uL (0.0-0.1); Basophils % 0.4 %; Eosinophils # 0.2 10^3/uL (0.0-0.8); Eosinophils % 1.1 %; Hematocrit 48.5 % (37-53); Lymphocytes # 2.8 10^3/uL (0.8-4.8); Lymphocytes % 16.2 %; Mean Corpuscular HGB Conc 33.8 g/dL (30-55); Mean Corpuscular Hemoglobin 34.2 pg (27-33); Mean Platelet Volume 9.2 fL (7.4-10.4); Monocytes # 1.2 10^3/uL (0.2-0.9); Monocytes % 6.6 %; Neutrophils # 12.97 10^3/uL (1.8-7.7); Neutrophils % 73.8 %; Nucleated Red Blood Cells % 0 %; Platelet Count 205 10^3/cmm (157-399); Red Cell Distribution Width 13.3 % (12.1-15.1); White Blood Count 17.58 10^3/uL (3.29-11.43)
[2024-04-19 03:22] LABS: Alanine Aminotransferase 80 U/L (0-41); Albumin Level 3.8 g/dL (3.5-5.2); Alkaline Phosphatase 72 U/L (40-130); Anion Gap 14.5 (5-19); Aspartate Amino Transferase 28 U/L (0-40); Blood Urea Nitrogen 18 mg/dL (6-20); Carbon Dioxide 30 mmol/L (22-29); Chloride 98 mmol/L (98-107); Creatinine Clr Calc Pharmacy 135.9573; Globulin 2.9 g/dL (1.3-4.6); Glomerular Filtration Rate 73.1 mL/min (90-130); Glucose 141 mg/dL (65-115); Magnesium 2.2 mg/dL (1.7-2.3); Osmolality Calculated 290 mOsm/kg (285-295); Phosphorus 3.8 mg/dL (2.5-4.5); Potassium 4.5 mmol/L (3.5-5.1); Sodium 138 mmol/L (136-145); Total Bilirubin 0.9 mg/dL (0.15-1.2); Total Protein 6.7 g/dL (6.6-8.7)
[2024-04-19 05:07] VITALS: BP 125/81; PULSE 90; RESP 19; TEMP 36.3; O2SAT 95
[2024-04-19 06:29] LABS: Glucose Point of Care 123 mg/dL (70-110)
[2024-04-19 08:06] VITALS: BP 124/82; PULSE 98; RESP 16; TEMP 36.9; O2SAT 92
[2024-04-19] MEDS: allopurinol 100 mg Tablet 200 MG PO (08:13)
[2024-04-19] MEDS: amlodipine 10 mg Tablet PO (08:13)
[2024-04-19] MEDS: metoprolol tartrate 25 mg Tablet PO (08:13)
[2024-04-19] MEDS: pantoprazole 40 mg SDV IVP (08:13)
[2024-04-19] MEDS: levothyroxine 150 mcg Tablet PO (08:13)
[2024-04-19] MEDS: HYDROMORPHONE HCL 0.5 MG/0.5 ML INJ 0.4 MG IVP (08:58)
[2024-04-19 10:05] VITALS: PULSE 91; RESP 18; O2SAT 94
[2024-04-19 10:43] LABS: Glucose Point of Care 105 mg/dL (70-110)
[2024-04-19] MEDS: dextrose 5%-lactated ringers 1,000 ML 100 ML IV (11:09)
[2024-04-19 11:14] VITALS: BP 148/75; PULSE 85; RESP 15; TEMP 36.8; O2SAT 96
[2024-04-19 13:34] VITALS: BP 148/75; PULSE 85; RESP 15; TEMP 36.8; O2SAT 96
--- NOTE | 2024-04-19 13:34 | PM.DCS ---
Discharge Providers Date of Admission: 04/18/24 22:38 Date of Discharge: April 19, 2024 Attending Provider at Admission: Clay Rutledge MD Attending Provider at Discharge: Marshall Tripathi MD Primary Care Provider: Margie Li Diagnoses at Discharge Discharge Diagnosis (1) Pancreatitis: Status: Resolved (2) Obesity: Status: Acute (3) Adult hypothyroidism: Status: Acute (4) Essential hypertension: Status: Acute Reason for Visit Reason for Visit: severe mid right back pain into front Hospital Course Hospital Course Shilo Painter is a 43 year old male present to the hospital with worsening abdominal pain with bloating Patient was admitted to [facility] for acute pancreatitis, with history of cholecystectomy, likely associated with steroid use, but potentially valsartan hydrochlorothiazide could be playing a role. Patient reports multiple steroid doses orally and injections for back pain recently. CT abdomen pelvis CT/CT abdomen pelvis w con* [id number] IMPRESSION: 1. Minimal edema about the pancreatic head and uncinate process, please correlate for pancreatitis. 2. Small bilateral inguinal hernias containing omentum without bowel. 3. Hepatic steatosis. 4. Cholecystectomy. MRCP MR/MR MRCP [id number] IMPRESSION: 1. Normal common bile duct. 2. Normal pancreatic duct. 3. Moderate hepatomegaly with hepatic steatosis. 4. Pancreatitis was better visualized on the CT of 04/18/2024. -Medically managed, IV fluids, bowel rest, pain control, overall clinically improved -Transitioned to clear liquid then to GI soft diet, he tolerated it well, no recurrent abdominal pain -Patient will be discharged with GI soft diet -On discharge patient was advised to abstain from steroids -He is hydrochlorothiazide-valsartan combination was also held -Follow-up with primary care provider as outpatient -Started on amlodipine 10 mg daily metoprolol 0.5 twice daily for his hypertension -Discussed pancreatitis in detail, bowel rest, GI soft diet, avoid fatty, high carb meals Physical Exam Const: COMMON NORMALS: no acute distress and patient oriented x3 Resp: COMMON NORMALS: normal respiratory effort, No retractions, No use of accessory muscles and clear to auscultation bilaterally AUSCULTATION: clear to auscultation bilaterally Cardio: COMMON NORMALS: regular rate, regular rhythm, S1 normal heart sound present and S2 normal heart sound present RATE: regular rate RHYTHM: regular rhythm HEART SOUNDS: S1 normal heart sound present and S2 normal heart sound present GI: COMMON NORMALS: Normal to inspection, nondistended, normoactive bowel sounds present and non-tender Extremity: COMMON NORMALS: no pedal edema Neuro: COMMON NORMALS: patient oriented x3 Psych: COMMON NORMALS: mental status grossly normal Discharge Data Studies Completed and Pending Completed Studies During Hospitalization Category Date Time Status CT abdomen pelvis w con* [id number] Stat Cat Scan 04/18/24 21:05 Completed MR MRCP [id number] Routine MRI 04/19/24 22:44 Completed Pending at discharge Category Date Time Status HEP ACUTE [Hepatitis Acute Panel] Routine Lab 04/19/24 13:26 Ordered HIV 1&2 Antigen & Antibody Routine Lab 04/19/24 13:26 Ordered Radiology Impressions Abdomen/Pelvis CT 04/18/24 21:05 IMPRESSION: 1. Minimal edema about the pancreatic head and uncinate process, please correlate for pancreatitis. 2. Small bilateral inguinal hernias containing omentum without bowel. 3. Hepatic steatosis. 4. Cholecystectomy. Cholangiopancreatography MRI 04/19/24 22:44 IMPRESSION: 1. Normal common bile duct. 2. Normal pancreatic duct. 3. Moderate hepatomegaly with hepatic steatosis. 4. Pancreatitis was better visualized on the CT of 04/18/2024. Laboratory Results WBC 17.58 10^3/uL (3.29-11.43) H 04/19/24 02:53 RBC 4.80 10^6/uL (3.85-5.65) 04/19/24 02:53 Hgb 16.40 g/dL (11.27-16.99) 04/19/24 02:53 Hct 48.5 % (37-53) 04/19/24 02:53 MCV 101.0 fl (82-101) 04/19/24 02:53 MCH 34.2 pg (27-33) H 04/19/24 02:53 MCHC 33.8 g/dL (30-55) 04/19/24 02:53 RDW 13.3 % (12.1-15.1) 04/19/24 02:53 Plt Count 205 10^3/cmm (157-399) 04/19/24 02:53 MPV 9.2 fL (7.4-10.4) 04/19/24 02:53 Neut % (Auto) 73.8 % 04/19/24 02:53 Lymph % (Auto) 16.2 % 04/19/24 02:53 [place] % (Auto) 6.6 % 04/19/24 02:53 Eos % (Auto) 1.1 % 04/19/24 02:53 Baso % (Auto) 0.4 % 04/19/24 02:53 Neut # (Auto) 12.97 10^3/uL (1.8-7.7) H 04/19/24 02:53 Lymph # (Auto) 2.8 10^3/uL (0.8-4.8) 04/19/24 02:53 [place] # (Auto) 1.2 10^3/uL (0.2-0.9) H 04/19/24 02:53 Eos # (Auto) 0.2 10^3/uL (0.0-0.8) 04/19/24 02:53 Baso # (Auto) 0.1 10^3/uL (0.0-0.1) 04/19/24 02:53 Nucleated RBC % (auto) 0 % 04/19/24 02:53 Nucleated RBCs # 0.0 /100WBC 04/19/24 02:53 Sodium 138 mmol/L (136-145) 04/19/24 02:53 Potassium 4.5 mmol/L (3.5-5.1) 04/19/24 02:53 Chloride 98 mmol/L (98-107) 04/19/24 02:53 Carbon Dioxide 30 mmol/L (22-29) H 04/19/24 02:53 Anion Gap 14.5 (5-19) 04/19/24 02:53 BUN 18 mg/dL (6-20) 04/19/24 02:53 Creatinine 1.1 mg/dL (0.7-1.2) 04/19/24 02:53 GFR Calculation 73.1 mL/min (90-130) L 04/19/24 02:53 Glucose 141 mg/dL (65-115) H 04/19/24 02:53 POC Glucose 105 mg/dL (70-110) 04/19/24 10:36 Estimat Average Glucose 128 04/18/24 20:35 Hemoglobin A1c 6.1 % (4.0-6.0) H 04/18/24 20:35 Calculated Osmolality 290 mOsm/kg (285-295) 04/19/24 02:53 Calcium 9.0 mg/dL (8.5-10.5) 04/19/24 02:53 Phosphorus 3.8 mg/dL (2.5-4.5) 04/19/24 02:53 Magnesium 2.2 mg/dL (1.7-2.3) 04/19/24 02:53 Total Bilirubin 0.9 mg/dL (0.15-1.2) 04/19/24 02:53 AST 28 U/L (0-40) 04/19/24 02:53 ALT 80 U/L (0-41) H 04/19/24 02:53 Alkaline Phosphatase 72 U/L (40-130) 04/19/24 02:53 Total Protein 6.7 g/dL (6.6-8.7) 04/19/24 02:53 Albumin 3.8 g/dL (3.5-5.2) 04/19/24 02:53 Globulin 2.9 g/dL (1.3-4.6) 04/19/24 02:53 Triglycerides 118 mg/dL (0-150) 04/18/24 20:35 Cholesterol 246 mg/dL (0-200) H 04/18/24 20:35 LDL Cholesterol, Calc 161 mg/dL (50-129) H 04/18/24 20:35 HDL Cholesterol 61 mg/dL (60-100) 04/18/24 20:35 LDL/HDL Ratio 2.64 RATIO (0.00-3.22) 04/18/24 20:35 Cholesterol/HDL Ratio 4.03 mg/dL (1.0-5.00) 04/18/24 20:35 Lipase 427 U/L (13-60) H 04/18/24 20:38 Urine Color Yellow (Yellow) 04/18/24 23:23 Urine Appearance Clear (CLEAR) 04/18/24 23:23 Urine pH 7.0 (5-7) 04/18/24 23:23 Ur Specific [place] 1.056 (1.005-1.030) H 04/18/24 23:23 Urine Protein Negative (Negative) 04/18/24 23:23 Urine Glucose (UA) Negative (Normal) 04/18/24 23:23 Urine Ketones Negative (Negative) 04/18/24 23:23 Urine Blood Negative (Negative) 04/18/24 23:23 Urine Nitrate Negative (Negative) 04/18/24 23:23 Urine Bilirubin Negative (Negative) 04/18/24 23:23 Urine Urobilinogen 0.2 mg/dL (Negative) 04/18/24 23:23 Ur Leukocyte Esterase Negative (Negative) 04/18/24 23:23 Urine RBC None /hpf (0-2) 04/18/24 23:23 Urine WBC None /hpf (0-5) 04/18/24 23:23 Ur Squamous Epith Cells None /hpf (0-5) 04/18/24 23:23 Amorphous Sediment Not Reportable 04/18/24 23:23 Urine Bacteria None /hpf (NONE) 04/18/24 23:23 Vitals Last Vital Signs Temp 98.3 F 04/19/24 11:14 Pulse 85 04/19/24 11:14 Resp 15 04/19/24 11:14 BP 148/75 04/19/24 11:14 Pulse Ox 96 04/19/24 11:14 O2 Del Method Room Air 04/19/24 11:14 Discharge Plan Discharge Patient Disposition: Home Condition: Stable Prescriptions: New amlodipine 10 mg Tablet 10 mg PO DAILY 30 Days Qty: 30 0RF metoprolol tartrate 25 mg Tablet 12.5 mg PO BID@0900,2100 30 Days Qty: 30 0RF hydrocodone-acetaminophen 5-325 mg tablet 1 tab PO BID PRN (Reason: pain) 7 Days Qty: 14 0RF Continued testosterone cypionate 200 mg/mL oil 200 mg IM .weekly Qty: 10 5RF cholecalciferol (vitamin D3) 125 mcg (5,000 unit) capsule 250 mcg PO DAILY citalopram 20 mg tablet 20 mg PO DAILY Qty: 90 1RF (DME) Syringe 3cc/22Gx1 3 mL 22 gauge x 1 syringe miscellaneous Qty: 10 6RF Rx Instructions: for testosterone injection cyclobenzaprine 10 mg tablet 10 mg PO Q8H PRN (Reason: Muscle Spasm) aspirin 81 mg Tablet,Delayed Release (Dr/Ec) 81 mg PO DAILY magnesium 250 mg Tablet 250 mg PO DAILY loratadine 10 mg Tablet 10 mg PO DAILY PRN (Reason: Allergy Symptoms) levothyroxine 150 mcg tablet 150 mcg PO DAILY allopurinol 200 mg tablet 200 mg PO DAILY Discontinued zinc sulfate 50 mg zinc (220 mg) Tablet 50 mg PO DAILY valsartan-hydrochlorothiazide 80-12.5 mg tablet 1 tab PO DAILY Discharge Orders: Discharge Order (Routine); Ordered 04/19/24 Ordered By: Marshall Tripathi Referrals: Jarred Wagner MD [Referring] - 1 month (hepatomegaly, pancreatitis We have notified your physician's clinic of the need for a follow-up appointment to be scheduled. If you have not heard from them within the next 2 business days, please call them directly. ) Discharge Diet: Cardiac Discharge Activity: Resume usual activity Patient Instructions: Metoprolol (By mouth), Hydrocodone/Acetaminophen (By mouth), Amlodipine (By mouth), Pancreatitis (DC), GI (Gastrointestinal) Soft Diet (DC), Opioid Safety Activity Restrictions/Additional Instructions: -please donot take steroids, avoid alcohol -please avoid taking valsartan and hydrochlorothiazide -Please take blood pressure medication as prescribed -Please drink plenty of electrolyte balanced fluids -Please take GI soft diet -If you have recurrent abdominal pain, please go to emergency room -Follow-up with GI in [place] for consideration EGD and colonoscopy and hepatomegaly -Your hemoglobin A1c is 6.1, please monitor your blood sugars closely, follow-up with primary care Discharge Attestations Time Spent in Discharge Care*: greater than 30 min Quality Metrics Clinical Quality Measures [ No reported AMI, CVA or VTE this stay] Coding Level of Care Code 95816 Total time (in minutes) for Discharge: 45 Diagnoses Pancreatitis K85.90 Obesity E66.9 Adult hypothyroidism E03.9 Essential hypertension I10
[2024-04-19] MEDS: acetaminophen 500 mg Tablet PO (13:49)
--- NOTE | 2024-04-19 13:51 | PC.NURSE ---
Discharge Note Patient discharged to home via private vehicle accompanied by . Discharge instructions reviewed with patient and/or traveling sales representative. Mobile pharmacy medications and/or prescriptions provided. Belongings/home medications returned.
[2024-04-19 14:36] LABS: Hepatitis A Antibody IgM Non-Reactive (Nonreactive); Hepatitis B Core IgM Non-Reactive (Nonreactive); Hepatitis B Surface Antigen Non-Reactive (Nonreactive); Hepatitis C Virus Antibody Non-Reactive (Nonreactive)
[2024-04-19 14:57] LABS: HIV 1 & 2 Antibody Non-Reactive (Non-Reactiv); HIV 1 & 2 Antigen Non-Reactive (Non-Reactiv)
--- NOTE | 2024-04-19 22:44 | MR_ITS ---
WS: [id number] MRCP (MAGNETIC RESONANCE CHOLANGIOPANCREATOGRAPHY) HISTORY: Pancreatitis COMPARISON: CT 04/18/2024 TECHNIQUE: Multiple sequences are performed to evaluate the intra and extrahepatic ducts. Moderately enlarged liver measuring 20.1 cm in length with diffuse hepatic steatosis. No intrahepatic duct dilatation. Prior cholecystectomy. Common bile duct is normal size at 3.4 mm. There are no filling defects within the common bile duct. Pancreatic duct is also small caliber and is not dilated. Mild inflammation surrounding the pancreatic head and uncinate process was much better visualized on the CT. No fluid collection is identified. On this study without contrast no pancreatic head mass or signal changes are identified. No adrenal mass. No hydronephrosis. Normal aorta. No ascites. MR/MR MRCP [id number] IMPRESSION: 1. Normal common bile duct. 2. Normal pancreatic duct. 3. Moderate hepatomegaly with hepatic steatosis. 4. Pancreatitis was better visualized on the CT of 04/18/2024.
== END 2024-04-19 14:48 | disposition home or self-care (01) ==
LOC: ER 21:11 → ER IP 23:08 → MEDSURG 04-19 02:48 → ER IP 04-19 08:15
PROVIDERS: Admitting Provider Internal Medicine; Emergency Provider Emergency Medicine; PCP Nurse Practitioner Family; Visit Provider Family Medicine
DX: K85.90 Acute pancreatitis without necrosis or infection, unspecified (principal); G47.33 Obstructive sleep apnea (adult) (pediatric); I10 Essential (primary) hypertension; E66.01 Morbid (severe) obesity due to excess calories; E03.9 Hypothyroidism, unspecified; E78.5 Hyperlipidemia, unspecified; Z90.49 Acquired absence of other specified parts of digestive tract; Z68.41 Body mass index [BMI] 40.0-44.9, adult; Z79.899 Other long term (current) drug therapy; Z79.82 Long term (current) use of aspirin; Z79.890 Hormone replacement therapy; F41.9 Anxiety disorder, unspecified; F32.A Depression, unspecified
CPT/HCPCS: 36415; 36416; 74177; 74181; 80053; 80061; 80074; 81001; 82962; 83036; 83690; 83735; 84100; 85025; 87806; 96372; 96374; 96375; 99285; G0378; J1171; J1650; J2270; J2405; J2470; J7030; J7121

== ENCOUNTER 2024-04-19 15:43 | Outpatient (CLI) | payer OTHER, SELFPAY ==
--- NOTE | 2024-04-19 16:00 | MR_ITS ---
WS: [id number] MRI LUMBAR SPINE NONCONTRAST HISTORY: Lumbar pain, LEFT hip pain. COMPARISON: None available. TECHNIQUE: Sagittal and axial multisequence imaging is submitted. Straightening of the normal lumbar lordosis. No acute fracture or marrow edema. Mild disc space desiccation at L4-5 and L5-S1. Conus terminates normally at L1. L1-L2: Normal. L2-L3: Small thecal sac. Mild facet and ligamentum flavum hypertrophy. No stenosis. L3-L4: Small thecal sac with moderate facet joint arthritis and ligamentum flavum hypertrophy. Mild annular disc bulging encroaching upon the ventral thecal sac and subarticular recesses. Tiny RIGHT subarticular disc protrusion is suspected. Moderate central, bilateral subarticular recess and mild foraminal stenosis. L4-L5: Small caliber thecal sac. Diffuse annular disc bulging with osteophytic ridging. Moderate central to LEFT paracentral disc protrusion extends into the subarticular recess. Disc contacts and displaces the traversing LEFT L5 nerve root. Lesser contact on the traversing RIGHT L5 nerve root. Moderate central, subarticular recess and foraminal stenosis. L5-S1: Mild disc bulging with a central disc protrusion which contacts the RIGHT S1 nerve root. Mild bilateral foraminal stenosis. MR/MR lumbar spine wo con* [id number] IMPRESSION: 1. Mild straightening of the normal lumbar lordosis. Small caliber thecal sac is probably congenital. 2. L4-5: Moderate size central to LEFT paracentral disc protrusion extending i nto the subarticular recess. Contact and displacement of the traversing LEFT L5 nerve root. Lesser disc contact on the traversing RIGHT L5 nerve root. Combina tion of disc and facet disease resulting in moderate central, subarticular rece ss and foraminal stenosis. 3. L5-S1: Small central disc protrusion contacts the RIGHT S1 nerve root. Mild bilateral foraminal stenosis. 4. L3-4: Very tiny RIGHT subarticular disc protrusion. Moderate central, bilat eral subarticular recess and mild foraminal stenosis due to combination of disc and facet arthritis.
== END 2024-04-19 15:44 | disposition home or self-care (01) ==
PROVIDERS: PCP Nurse Practitioner Family; Visit Provider Orthopaedic Surgery
DX: M48.061 Spinal stenosis, lumbar region without neurogenic claudication (principal); M79.604 Pain in right leg; M79.605 Pain in left leg; R93.7 Abnormal findings on diagnostic imaging of other parts of musculoskeletal system; M51.26 Other intervertebral disc displacement, lumbar region; M51.86 Other intervertebral disc disorders, lumbar region; M51.27 Other intervertebral disc displacement, lumbosacral region; M48.07 Spinal stenosis, lumbosacral region; M47.896 Other spondylosis, lumbar region; M51.369 Other intervertebral disc degeneration, lumbar region without mention of lumbar back pain or lower extremity pain; M51.379 Other intervertebral disc degeneration, lumbosacral region without mention of lumbar back pain or lower extremity pain
CPT/HCPCS: 72148

== ENCOUNTER → 2024-05-23 09:10 | Outpatient (BNVA) | payer OTHER, SELFPAY | PROVIDERS: PCP Nurse Practitioner Family; Visit Provider Student in an Organized Health Care Education/Training Program | DX: M17.12 Unilateral primary osteoarthritis, left knee (principal); M23.42 Loose body in knee, left knee; Z98.890 Other specified postprocedural states | CPT/HCPCS: 73560; 73565 ==

== ENCOUNTER 2024-11-29 08:06 | Day surgery (SDC) | payer OTHER, SELFPAY ==
[2024-11-29] VITALS (9 sets, daily range): BP systolic 119–140; BP diastolic 77–97; PULSE 74–90; RESP 16–22; TEMP 36.2–36.6; O2SAT 95–99; BMI 37.2
[2024-11-29] MEDS: acetaminophen 1,000 MG/100 ML PIGGYBACK 400 MG IV (08:49)
--- NOTE | 2024-11-29 08:49 | ANES.PREANE2 ---
Pre-Anesthetic Assessment Height/Weight: Height 6 ft 2 in Weight 290 lb Temp Pulse Resp BP Pulse Ox O2 Del Method 97.6 F 83 16 138/97 95 Room Air 11/29/24 08:31 11/29/24 08:31 11/29/24 08:31 11/29/24 08:31 11/29/24 08:31 11/29/24 08:31 Operation Date: 11/29/24 10:35 Proposed Procedures p LEFT Knee Diagnostic and Surgical Arthoscopy w/ POSSIBLE Loose Body Removal(Left) - Brian Roanoke, DO s POSSIBLE PARTIAL Medial and PARTIAL Lateral Meniscectomy(Left) - Brian Kayli, DO s Chondroplasty(Left) - Brian Roanoke, DO Last intake: Intake Last Liquid Date 11/28/24 Last Liquid Time 21:00 Last Solid Date 11/28/24 Last Solid Time 18:30 Anesthetic Plan ASA status: 3 Anesthesia: General Other: Patient states that he needs BiPAP after anesthesia NPO since yesterday evening History of hypertension on amlodipine. Preop BP 138/97 Hypothyroidism on Synthroid BMI 37 [place] on BiPAP at baseline Stress test 2022 negative with echo showing EF of 60% Plan for general anesthesia Medications/Allergies Home Medications ?Medication ?Instructions ?Recorded ?Confirmed ?Last Taken ?Type syringe with needle 3 mL 22 gauge #10 ea 11/25/20 10/30/24 Unknown Rx x 1 (Syringe) cholecalciferol (vitamin D3) 125 250 mcg PO DAILY 10/01/21 11/28/24 11/28/24 History mcg (5,000 unit) capsule testosterone cypionate 200 mg/mL 200 mg IM .weekly #10 mL 03/04/22 11/28/24 11/28/24 Rx intramuscular oil citalopram 20 mg tablet 20 mg PO DAILY #90 tabs 07/27/23 11/28/24 11/28/24 Rx allopurinol 200 mg tablet 200 mg PO DAILY 03/21/24 11/28/24 11/28/24 History aspirin 81 mg tablet,delayed 81 mg PO DAILY 03/21/24 11/28/24 11/22/24 History release levothyroxine 150 mcg tablet 150 mcg PO DAILY 03/21/24 11/28/24 11/28/24 History loratadine 10 mg tablet 10 mg PO DAILY PRN Allergy Symptoms 01/11/28/24 11/28/24 History magnesium 250 mg tablet 250 mg PO DAILY 03/21/24 11/28/24 11/28/24 History amlodipine 10 mg tablet 10 mg PO DAILY 11/28/24 11/28/24 11/28/24 History diclofenac sodium 75 mg 75 mg PO BID 11/28/24 11/28/24 11/22/24 History tablet,delayed release tizanidine 4 mg tablet 4 mg PO DAILY PRN muscle spasms 11/28/24 11/28/24 11/28/24 History Allergies Allergy/AdvReac Type Severity Reaction Status Date / Time No Known Allergies Allergy Verified 11/28/24 11:30 [facility] Anesthesia Medical History (Updated 11/03/24 @ 17:12 by Brian Milan DO) Anxiety and depression Myalgia Hypersomnia Depression Hypogonadism in male Essential hypertension Decreased libido Surgical History History of surgery on arm DISTAL BICEP TENDON REPAIR S/P tonsillectomy and adenoidectomy S/P knee surgery Family History Unknown Adopted Social History Smoking and tobacco/nicotine status: never used tobacco/nicotine Alcohol intake: never Substance/Drug Use: never Adopted: Yes Marital status: Current occupational status: employed Data Anesthesia Cardiac Studies: Echocardiogram 04/30/22 Sestamibi Stress Test (Cardiology) 06/24/22
--- NOTE | 2024-11-29 08:54 | W.PM.OPSUD ---
Surgery/Procedure H&P Update DATE OF PROCEDURE: November 29, 2024 DATE H&P PERFORMED: 10/30/24 H&P UPDATE INFORMATION: I have reviewed H&P completed within last 30 days, I have examined patient prior to procedure and No changes to prior documentation PREOP DIAGNOSIS: Left knee loose body, chondromalacia and tear of medial and lateral meniscu PRIMARY INDICATION FOR PROCEDURE: Left knee loose body, chondromalacia, tear medial and lateral meniscus PLANNED PROCEDURE: Operation Date: 11/29/24 10:35 Proposed Procedures p LEFT Knee Diagnostic and Surgical Arthoscopy w/ POSSIBLE Loose Body Removal(Left) - DO farrah Brooks POSSIBLE PARTIAL Medial and PARTIAL Lateral Meniscectomy(Left) - DO farrah Brooks Chondroplasty(Left) - Brian Milan DO
[2024-11-29] MEDS: ceFAZolin 3,000 MG in sodium chloride 0.9% (plus) 100 ML 200 MG IV (10:00)
[2024-11-29] MEDS: lidocaine-epi 2% PF 1:200,000 20 mL SDV 40 ML XX (10:05)
--- NOTE | 2024-11-29 11:04 | W.PM.BPON ---
Date of Procedure: November 29, 2024] Surgeon: [Dr. Milan DO] Perl Programmer(s): [Colin Milan PA-C] Procedure(s) performed: [Left knee surgical arthroscopy Partial medial meniscectomy Partial lateral meniscectomy Loose body removal Extensive synovectomy Medial, lateral and patellofemoral chondroplasty] Findings of the procedure(s): [Left knee?partial tear of medial and lateral meniscus. Medial joint compartment grade III/IV chondromalacia, patellofemoral grade IV chondromalacia and lateral compartment grade III chondromalacia extensive synovitis and loose body.. Procedure went well and is planned.] Estimated blood loss: [5 mL] Specimen(s) removed: [N/A] Post-operative diagnosis: [Left knee?partial tear of medial and lateral meniscus. Medial joint compartment grade III/IV chondromalacia, patellofemoral grade IV chondromalacia and lateral compartment grade III chondromalacia extensive synovitis and loose body]
--- NOTE | 2024-11-29 11:07 | PM.PACU ---
PACU note Narrative: Patient is a 44-year-old male who just underwent a left knee arthroscopy. Pt transferred to PACU in stable condition. Dressing is dry. pt is awake and alert. pt can wiggle toes and plantarflex and dorsiflex foot. pt able to perform straight leg raise, Femoral nerve intact. Distal pulses are palpable toes are warm and well-perfused. Cap refill is normal and under 2 seconds. Sensation to foot is intact. Pain is controlled. Exam: awake Disposition: discharged
--- NOTE | 2024-11-29 11:45 | P.OP_ITS ---
Operative Report Date of procedure: November 29, 2024 Surgeon: Brian Milan DO Consulting Senior Practice Director: Colin Milan PA-C: PA was necessary for assistance in this case with leg positioning assistance with arthroscopic instrumentation to perform procedure, as well as assistance in wound closure and dressing application. Procedure: Preoperative diagnosis: Left knee loose body, chondromalacia and tear of medial and lateral meniscus Post-op diagnosis: Left knee?partial tear of medial and lateral meniscus. Medial joint compartment grade III/IV chondromalacia, patellofemoral grade IV chondromalacia and lateral compartment grade III chondromalacia extensive synovitis and loose body Procedure done: Left?knee?diagnostic and surgical arthroscopy partial medial meniscectomy Left knee diagnostic and surgical arthroscopy with partial lateral meniscectomy Left?knee?diagnostic and surgical arthroscopy with extensive synovectomy of the medial lateral and patellofemoral compartments Left?knee?diagnostic and surgical arthroscopy with medial, lateral, patellofemoral compartment chondroplasty Left knee diagnostic and surgical arthroscopy with loose body removal Surgeon: Brian Milan DO Estimated blood loss: 5mL Tourniquet: No tourniquet was used IV fluids: See anesthesia record Complications: None Findings: See operative report narrative Condition: stable Disposition: same day Brief History: Patient is a 44-year-old male with Left?knee?pain.? Patient has failed conservative treatment who has been worked up for Left??knee?pain in the outpatient setting. MRI findings consistent with tear of the medial and lateral meniscus, loose body, chondromalacia. Has a history of multiple knee arthroscopy procedures as well as ACL reconstruction. Talked in the office about treatment options patient would like to proceed with a left knee diagnostic and surgical arthroscopy with possible loose body removal, possible partial medial meniscectomy and partial lateral meniscectomy, chondroplasty .? Patient understand the ins and outs of the procedure the risk benefits complication alternatives to treatment options.? Understanding risk of surgery they agree to proceed with surgical intervention.? Patient understand this may not provide patient with complete symptomatic relief of? pain as patient does have some underlying arthritis.? Understanding this and patient agree to proceed with surgical intervention all questions answered. Procedure: Patient seen and evaluated in the preoperative holding area.? Consent was reviewed and signed with patient.? Correct extremity was then marked.? Patient seen evaluated Anesthesia Department once cleared for surgery patient was taken back to the operative suite.? Patient was transported onto the OR table in supine position.? All bony prominences well-padded patient was appropriate secured to the bed.? Once appropriately anesthetized a nonsterile tourniquet was applied to the Left thigh.? The Left lower extremity was then prepped and draped in?standard?orthopedic fashion.? Final timeout performed.? Patient received appropriate preoperative antibiotics. Patient received local anesthetic of lidocaine with epinephrine into the joint as well as around the portal sites.? No tourniquet was inflated A?standard?2 portal vertical incision diagnostic and surgical arthroscopy of the Left?knee?was performed in?standard?fashion.? Small stab incision at previous portal incision site made in the inferolateral portal introduced trocar and arthroscope into the suprapatellar pouch.? Suprapatellar pouch was subsequently visualized and found to have significant synovitis but no loose bodies.? Patient had significant scar tissue buildup in the inferior patellar fat pad. Patient had noticeable significant inflamed infrapatellar fat pad and thickening hypertrophic within the patellofemoral compartment.? ?The medial gutter was free of loose bodies I then introduced the arthroscope into the medial compartment.? Within the medial compartment I then established my inferior medial working portal utilizing spinal needle outside in technique.? Once established I then visualized our articular cartilage of the medial compartment with a valgus stress.? Patient was found to have grade 3-4 chondromalacia throughout the medial compartment.? Next I inspected the meniscus.? Majority of patient's meniscus had already been gone a small sliver posterior root was intact however the anterior body portion that was complex tearing in this area as a result a partial medial meniscectomy was then performed. I then subsequently introduced a basket forceps as well as arthroscopic shaver to perform a partial medial meniscectomy to stable meniscal tissue and then utilized a thermal wand to anneal the edges.? Next, I then performed a synovectomy of the medial compartment.? Given patient's chondromalacia there was areas of unstable articular cartilage and I subs equently performed a chondroplasty with arthroscopic shaver and thermal wand.? This completed medial compartment work. Next a introduced the arthroscope to the intercondylar notch.? PCL and ACL were intact. patient had significant thickening of the infrapatellar fat pad spanning into the medial and lateral compartments.? I then performed an extensive synovectomy with the arthroscopic shaver of the patellofemoral medial and lateral compartments as well as the intercondylar notch. Patient on the intercondylar notch on the area in front of the ACL graft there was a prominent osteophyte which appeared to be impinging on the ACL graft this potentially could have been a previous loose body this was then subsequently shaved and excised and screw surface and completely decompressed as pressure on the ACL graft. Once again the ACL graft appeared to be intact. Advance the?scope into the retrocruciate space and no loose bodies were found were able to be unaccessible as the one on the MRI was posterior to the PCL it appeared to be scarred in place. Next I introduced the arthroscope into the lateral compartment the lateral compartment was found to have grade 3 chondromalacia.? Patient was found to have a loose body in the popliteal fossa this was then grasped with a grasper and removed. Lateral meniscus root was found to be intact however the anterior horn did have tearing complex the anterior horn I subsequently utilized arthroscopic shaver and basket forceps to perform partial lateral meniscectomy to stable meniscal tissue and then utilized a thermal wand to kneel the edges. I then subsequently inspected the grade III chondromalacia that was starting to do laminate I subsequently utilized an arthroscopic shaver and thermal wand to perform a lateral compartment chondroplasty to stable articular tissue. This completed my work of the lateral compartment and then performed a synovectomy of the lateral compartment.? Next of the arthroscope was placed into the lateral gutter and this was free of loose bodies.? Finally I reintroduced the arthroscope into the patellofemoral compartment.? The patellofemoral was found to have grade 4 chondromalacia of the patellofemoral compartment.? At this point I utilized arthroscopic shaver as well as thermal wand to perform extensive synovectomy of the patellofemoral compartment. This completed my work of the patellofemoral space.? I subsequently utilized arthroscopic shaver and thermal wand to perform a patellofemoral compartment chondroplasty to stable articular tissue I then switch my portal sites to the medial working portal.? Completed the rest of my synovectomy and the rest of my examination arthroscopy was normal. All fluid was suctioned from the joint.? ?All instruments were withdrawn.? Portal sites were closed with interrupted nylon suture.? portal sites were then covered with with Xeroform 4 x 4's ABD Curlex and Yaakov wrap.? Patient was then subsequently awakened from anesthesia and taken to PACU in stable condition. Disposition: Patient taken to PACU in stable condition recovering well.? Will receive appropriate discharge structure as well as pain medication postoperatively as well as? DVT prophylaxis.we will have patient follow-up with us in the office in 2 weeks.? We will weightbearing as tolerated to the Left lower extremity.? Patient understands and agrees with current plan.? All questi ons answered.
--- NOTE | 2024-11-29 12:10 | ANE.PACU2 ---
Inpatient post-anesthesia follow up: Airway intact: Yes Vital signs: Temperature 97.2 F Pulse Rate 76 Respiratory Rate 16 Blood Pressure 129/90 Pulse Oximetry 97 Oxygen Delivery Me thod Room Air Oxygen Flow Rate 8 Fraction of Inspir ed Oxygen Hydration adequate: Yes Nausea and vomiting: No Pain level: 1 Mental status: Baseline
--- NOTE | 2024-11-29 13:01 | SUR.PHASEII ---
Patient was written rx for a walker. When HOME brought it over, pt had just been up and to the bathroom walking and felt like he did not need the walker and he was told they wouldnt bill his insurance for it so he declined it.
== END 2024-11-29 12:10 | disposition home or self-care (01) ==
PROVIDERS: PCP Nurse Practitioner Family; Visit Provider Student in an Organized Health Care Education/Training Program
PROC: (CPT 29870; principal; 2024-11-29 10:35)
PROC: (CPT 29876; 2024-11-29 10:35)
PROC: (CPT 29876; 2024-11-29 10:35)
DX: S83.282A Other tear of lateral meniscus, current injury, left knee, initial encounter (principal); S83.242A Other tear of medial meniscus, current injury, left knee, initial encounter; X58.XXXA Exposure to other specified factors, initial encounter; M94.262 Chondromalacia, left knee; M65.962 Unspecified synovitis and tenosynovitis, left lower leg; M23.42 Loose body in knee, left knee; G47.33 Obstructive sleep apnea (adult) (pediatric); Z99.89 Dependence on other enabling machines and devices; E03.9 Hypothyroidism, unspecified; I10 Essential (primary) hypertension; Z79.82 Long term (current) use of aspirin; F41.8 Other specified anxiety disorders
CPT/HCPCS: 29876; 29880; J0131; J0690; J1100; J1885; J2250; J2405; J2704; J3010; J7030; J9999

== ENCOUNTER 2025-01-09 12:04 | Outpatient (RCR) | payer OTHER, SELFPAY | END 2025-01-20 23:59 | disposition home or self-care (01) | LOC: TPT 12:04 | PROVIDERS: PCP Nurse Practitioner Family; Visit Provider Physician Assistant | DX: Z47.89 Encounter for other orthopedic aftercare (principal) | CPT/HCPCS: 97110; 97161 ==

== ENCOUNTER 2025-01-18 12:00 | Outpatient (RCR) | payer OTHER, SELFPAY | END 2025-01-20 23:59 | disposition home or self-care (01) | LOC: TPT 12:00 | PROVIDERS: Visit Provider Specialist | DX: M54.50 Low back pain, unspecified (principal) | CPT/HCPCS: 97110; 97161 ==

== ENCOUNTER 2025-01-25 12:21 | Outpatient (RCR) | payer OTHER, SELFPAY | END 2025-02-20 23:59 | disposition home or self-care (01) | LOC: TPT 12:21 | PROVIDERS: PCP Nurse Practitioner Family; Visit Provider Specialist | DX: M54.50 Low back pain, unspecified (principal) | CPT/HCPCS: 97110; 97140 ==

== ENCOUNTER 2025-02-15 11:00 | Outpatient (RCR) | payer OTHER, SELFPAY | END 2025-02-20 23:59 | disposition home or self-care (01) | LOC: TPT 11:00 | PROVIDERS: PCP Nurse Practitioner Family; Visit Provider Physician Assistant | DX: Z98.890 Other specified postprocedural states (principal) | CPT/HCPCS: 97110 ==